=== PATIENT | female | born 1980 | race Caucasian/White ===

== ENCOUNTER 2017-02-10 20:28 | Emergency (ER) | payer MEDICAID, OTHER ==
[~2017-02-10] VITALS: Ht 172.7 cm; Wt 72.5 kg
[2017-02-10 20:57] VITALS: Ht 172.7 cm; Wt 72.5 kg
[2017-02-10 22:54] LABS: ADD SCAN DIFF NO
[2017-02-10 22:57] LABS: BASOPHIL # 0.1 10^3/ul (0.0-0.1); BASOPHILS % 0.5 % (0.0-2.0); EOSINOPHILS # 0.2 10^3/ul (0.0-0.5); EOSINOPHILS % 1.4 % (0.0-7.0); HEMATOCRIT 37.7 % (37.0-47.0); HEMOGLOBIN 13.5 g/dl (12.0-16.0); LYMPHOCYTES # 2.7 10^3/ul (0.8-2.9); LYMPHOCYTES % 23.2 % (15.0-51.0); MEAN CORPUSCULAR HEMOGLOBIN 34.6 pg (29.0-33.0); MEAN CORPUSCULAR HGB CONC 35.8 g/dl (32.0-37.0); MEAN CORPUSCULAR VOLUME 96.7 fl (82.0-101.0); MEAN PLATELET VOLUME 9.8 fl (7.4-10.4); MONOCYTES % 8.6 % (0.0-11.0); NEUTROPHIL # 7.5 10^3/ul (1.6-7.5); PLATELET COUNT 354 10^3/UL (140-415); RED CELL DISTRIBUTION WIDTH 11.4 % (11.5-14.5); WHITE BLOOD COUNT 11.4 10^3/ul (4.8-10.8)
[2017-02-10 23:08] LABS: ADD UMIC YES; URINE BILIRUBIN (Dip) NEGATIVE (NEGATIVE); URINE BLOOD (Dip) 3+ (NEGATIVE); URINE COLOR LT. YELLOW (YELLOW); URINE GLUCOSE (Dip) NEGATIVE (NEGATIVE); URINE KETONES (Dip) 15 (NEGATIVE); URINE LEUKOCYTE ESTERASE (Dip) NEGATIVE (NEGATIVE); URINE NITRITE (Dip) NEGATIVE (NEGATIVE); URINE TOTAL PROTEIN (Dip) NEGATIVE (NEGATIVE); URINE UROBILINOGEN (Dip) 0.2 E.U./dL (0.1-1.0)
[2017-02-10 23:22] LABS: BACTERIA,URINE FEW; MUCUS,URINE MODERATE; SQUAMOUS EPITHELIAL CELL,UR MODERATE; URINE RBCS 0-2 /HPF (0)
--- NOTE | 2017-02-10 23:42 | RADRPT ---
PROCEDURE: US OB. US OB Transabd 1St Tri CLINICAL INDICATION: Vaginal Bleed () TECHNIQUE: Transabdominal and transvaginal views of the pelvis are available for review. COMPARISON: No prior studies are available for comparison. FINDINGS: The uterus demonstrates a gestational sac, with mean sac diameter measuring 1.6 cm. There is a feta l pole identified. A yolk sac is noted. There is a small subchorionic bleed, 1.4 x 0.8 cm. [place]-rump length:0.25 centimeters heart rate:110 beats per minute Ultrasound estimated gestational age:6 weeks and 1 day Estimated delivery date 10/05/2017. Estimated delivery date by last menstrual period 10/13/2017. There is a right ovarian corpus luteal cyst, 2.6 cm. IMPRESSION: 1. Single live intrauterine with an estimated gestational age of 6 weeks and 1 day. 2. Small subchorionic bleed, 1.4 cm. 3. Right ovarian corpus luteal cyst.. RPTAT: HBST .Macario Da Silva MD, Date Time Electronically viewed and signed by .Macario Da Silva MD, on 02/10/2017 23:42 .T/
--- NOTE | 2017-02-11 00:26 | ERD ---
ER Documentation Chief Complaint Date/Time DATE: 02/11/17 TIME: 00:19 Chief Complaint bleeding and cramping today just found out she is HPI Is a 36-year-old female, A2, who presents emergency department for vaginal bleeding and cramping which started today. Patient states her pain started approximately 1 hour ago. Patient reports bright red blood, she has thus far used one pad. Patient reports diffuse, intermittent, bilateral pelvic cramping. She denies any fevers, chills, nausea, vomiting, abdominal pain. Patient states her last menstrual period was on 01-06-17. She did see an [employer] earlier today and was given vitamins. Patient reports currently taking Keflex for a skin infection she has on her back. ROS All systems reviewed and are negative except as per history of present illness. PMhx/Soc Medical and Surgical Hx: pt denies Medical Hx, pt denies Surgical Hx History of Surgery: No Anesthesia Reaction: No Hx Neurological Disorder: No Hx Respiratory Disorders: No Hx Cardiac Disorders: No Hx Psychiatric Problems: No Hx Miscellaneous Medical Probl: No Hx Alcohol Use: No Hx Substance Use: No Hx Tobacco Use: No Smoking Status: Never smoker FmHx Family History: No diabetes Physical Exam Vitals Vital Signs Date Time Temp Pulse Resp B/P Pulse Ox O2 Delivery O2 Flow Rate FiO2 02/10/17 20:57 98.3 68 20 139/62 100 Physical Exam GENERAL: Well-developed, well-nourished female. Appears in no acute distress. HEAD: Normocephalic, atraumatic. EYES: Pupils are equally reactive bilaterally. EOMs grossly intact. No conjunctival erythema. ENT: Moist mucous membranes. No uvula deviation. No kissing tonsils. NECK: Supple. No meningismus. Normal range of motion of the neck. LUNG: Clear to auscultation bilaterally. No rhonchi, wheezing, rales or coarse breath sounds. HEART: Regular rate and rhythm. No murmurs, rubs or gallops. ABDOMEN: No scars, ecchymosis or rashes noted. Soft, nontender, and nondistended. Positive bowel sounds in all four quadrants. No rebound tenderness , no guarding. (-) McBurney's point tenderness. No CVA tenderness. EXTREMITIES: Equal pulses bilaterally. No peripheral clubbing, cyanosis or edema. No unilateral leg swelling. NEUROLOGIC: Alert and oriented. Moving all four extremities without any difficulty. Normal speech. Steady gait. SKIN: Normal color. Warm and dry. No rashes or lesions. Result Diagram: 02/10/172234 Results 24 hrs Laboratory Tests Test 02/10/17 22:30 02/10/17 22:35 Urine Color LT. YELLOW Urine Clarity SL.HAZY Urine pH 5.0 Urine Specific [place] 1.015 Urine Ketones 15 Urine Nitrite NEGATIVE Urine Bilirubin NEGATIVE Urine Urobilinogen 0.2 E.U./dL Urine Leukocyte Esterase NEGATIVE Urine Microscopic RBC 0-2/HPF Urine Microscopic WBC 10-25/HPF Urine Squamous Epithelial Cells MODERATE Urine Bacteria FEW Urine Mucus MODERATE Urine Hemoglobin 3+ Urine Glucose NEGATIVE% Urine Total Protein NEGATIVE White Blood Count 11.410^3/ul Red Blood Count 3.9010^6/ul Hemoglobin 13.5g/dl Hematocrit 37.7% Mean Corpuscular Volume 96.7fl Mean Corpuscular Hemoglobin 34.6pg Mean Corpuscular Hemoglobin Concent 35.8g/dl Red Cell Distribution Width 11.4% Platelet Count 04535^3/UL Mean Platelet Volume 9.8fl Neutrophils % 66.0% Lymphocytes % 23.2% Monocytes % 8.6% Eosinophils % 1.4% Basophils % 0.5% Nucleated Red Blood Cells % 0.0/100WBC Neutrophils # 7.510^3/ul Lymphocytes # 2.710^3/ul Monocytes # 1.010^3/ul Eosinophils # 0.210^3/ul Basophils # 0.110^3/ul Nucleated Red Blood Cells # 0.010^3/ul Beta HCG, Quantitative 71460.0mIU/ml Procedures/MDM ED COURSE: The patient was stable throughout ED course. I kept the patient and/or family informed of laboratory and diagnostic imaging results throughout the ED course. DIAGNOSTIC IMAGING: Read by radiologist. DIAGNOSTIC IMAGING REPORT Patient: BERTHA PRINGLE : 1980 Age: 36 Sex: F MR #: [id number] DOS: 02/10/172221 Ordering MD: RIGO SIERRA PA-C Location: [facility] Room/Bed: PROCEDURE: US OB. US OB Transabd 1St Tri CLINICAL INDICATION: Vaginal Bleed () TECHNIQUE: Transabdominal and transvaginal views of the pelvis are available for review. COMPARISON: No prior studies are available for comparison. FINDINGS: The uterus demonstrates a gestational sac, with mean sac diameter measuring 1.6 cm. There is a pole identified. A yolk sac is noted. There is a small subchorionic bleed, 1.4 x 0.8 cm. [place]-rump length: 0.25 centimeters heart rate: 110 beats per minute Ultrasound estimated gestational age: 6 weeks and 1 day Estimated delivery date 10/05/2017. Estimated delivery date by last menstrual period 10/13/2017. There is a right ovarian corpus luteal cyst, 2.6 cm. IMPRESSION: 1. Single live intrauterine with an estimated gestational age of 6 weeks and 1 day. 2. Small subchorionic bleed, 1.4 cm. 3. Right ovarian corpus luteal cyst.. RPTAT: HBST .Macario Da Silva MD, MD Date Time Electronically viewed and signed by .Macario Da Silva MD, on 02/10/2017 23:42 .T/ CC: RIGO SIERRA PA-C MEDICAL DECISION MAKING: This is a 36-year-old female who presents with vaginal bleeding cramping 1 hour. Patient is A2. Vital signs were reviewed. Patient was afebrile. Patient was hemodynamically stable. CBC noted a white count of 11.4. Hemoglobin and hematocrit was within normal limits. No signs [place] [address]. Patient is O+. no Rhogam given today. Patient's urinalysis showed moderate epithelial cells, 3+ blood, 10-25 WBCs. Patient samples likely contaminated. Patient is currently taking Keflex which will continue to cover any possibility of urinary tract infection. Patient encouraged to continue take these antibiotics as prescribed. Pelvic US showed 1. Single live intrauterine with an estimated gestational age of 6 weeks and 1 day. 2. Small subchorionic bleed, 1.4 cm. 3. Right ovarian corpus luteal cyst. Given these findings, the patient's presentation is most consistent with vaginal bleeding during and subchorionic hemorrhage. I have a much lower clinical concern for ectopic , ruptured ectopic , molar , incomplete , complete , missed , placental abruption, placental previa, vasa previa, uterine rupture, anembyronic . DISCHARGE: At this time, patient is stable for discharge and outpatient management. I had a conversation at length with the patient about the concerns of vaginal bleeding during the 1st trimester of . Patient and/or family understands that her vaginal bleeding can be a normal finding or a sign of miscarriage. I have instructed the patient to follow-up with her OBGYN in 1-2 days for further monitoring including a repeat b-HCG level. I have instructed the patient to promptly return to the ER at any time for any new or worsening symptoms including increased pain, nausea, vomiting, continued bleeding, weakness, syncope or fever. The patient and/or family expressed understanding of and agreement with this plan. All questions were answered. Home care instructions were provided. Departure Diagnosis: Primary Impression: Vaginal bleeding in patient at less than 20 weeks ges... Additional Impression: Subchorionic hematoma Condition: Stable Patient Instructions: Bleeding During Early Referrals: AMADA SOLANO (PCP) Additional Instructions: Call your primary care doctor/OBGYN TOMORROW for an appointment during the next 1-2 days.See the doctor sooner or return here if your condition worsens before your appointment time. Return to in 2 days for repeat beta-hCG level. Continue Keflex. RIGO SIERRA PA-C Feb 11, 2017 00:26
[2017-02-11 00:58] VITALS: BP 128/77; PULSE 72; RESP 20; TEMP 98.2
== END 2017-02-11 00:59 | disposition home or self-care (01) ==
LOC: FTE 20:28
DX: O20.9 Hemorrhage in early pregnancy, unspecified (principal); O36.8910 Maternal care for other specified fetal problems, first trimester, not applicable or unspecified; R10.2 Pelvic and perineal pain; Z3A.01 Less than 8 weeks gestation of pregnancy
CPT/HCPCS: 36415; 76801; 76817; 81001; 84702; 85025; 86900; 86901